=== PATIENT | female | born 1970 | race African-American/Black ===

== ENCOUNTER 2016-10-07 04:32 | Emergency (ER) | payer OTHER ==
[2016-10-07 04:45] VITALS: BP 118/83; PULSE 61; TEMP 98; BMI 23.9
--- NOTE | 2016-10-07 04:47 | PDOC ---
History of Present Illness - General Chief Complaint: Pain, Acute Stated Complaint: HEADACHE Time Seen by Provider: 10/07/16 04:44 History Source: Patient Exam Limitations: No Limitations - History of Present Illness Initial Comments: 10/07/16 04:45 This is a 46 her old female who has a history of migraine headaches and comes in complaining of a migraine headache. 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 Patient is requesting no medication here but does need a note to go home. Patient denies any fever, chills, neck stiffness any nausea or any other complaints. PAST MEDICAL HISTORY: no significant history PAST SURGICAL HISTORY: no significant history FAMILY HISTORY: no pertinant history SOCIAL HISTORY: Pt lives with family and is employed. MEDICATIONS: reviewed ALLERGIES: As per nursing notes Review of Systems General: No fevers or chills, no weakness, no weight loss HEENT: No change in vision. No sore throat,. No ear pain CardioVascular: No chest pain or shortness of breath Respiratory:No cough, or wheezing. Gastrointestinal: no nausea, vomitting, diarrhea or constipation, No rectal bleeding Genitourinary: No dysuria, hematuria, or frequency Musculoskeletal: No joint or muscle pain or swelling Neurologic: + Migraine headache, vertigo, dizziness or loss of consciousness Psychiatric: nor depression Skin: No rashes or easy bruising Endocrine: no increased thirst or abnormal weight change Allergic: no skin or latex allergy All other systems reviewed and normal GENERAL: The patient is awake, alert, and fully oriented, in no acute distress. HEAD: Normal with no signs of trauma. EYES: Pupils equal, round and reactive to light, extraocular movements intact, sclera anicteric, conjunctiva clear. EXTREMITIES: Normal range of motion, no edema. NEUROLOGICAL: Normal speech, normal gait. PSYCH: Normal mood, normal affect. SKIN: Warm, Dry, normal turgor, no rashes or lesions noted. Past History - Past Medical History Allergies/Adverse Reactions: Allergies Allergy/AdvReac Type Severity Reaction Status Date / Time Penicillins Allergy Verified 10/07/16 04:33 Home Medications: Ambulatory Orders NK [No Known Home Medication] 10/07/16 Other medical history: DENIES - Immunization History Immunization Up to Date: Yes - Psycho/Social/Smoking Cessation Hx Anxiety: No Suicidal Ideation: No Smoking History: Current some day smoker Have you smoked in the past 12 months: Yes Number of Cigarettes Smoked Daily: 2 Information on smoking cessation initiated: Yes 'Breaking Loose' booklet given: 10/07/16 Hx Alcohol Use: Yes Drug/Substance Use Hx: No Substance Use Type: None *Physical Exam - Vital Signs Last Vital Signs Temp Pulse Resp BP Pulse Ox 98 F 61 16 118/83 100 10/07/16 04:38 10/07/16 04:38 10/07/16 04:38 10/07/16 04:38 10/07/16 04:38 *DC/Admit/Observation/Transfer Diagnosis at time of Disposition: Migraine headache Qualifiers: Migraine type: unspecified Status migrainosus presence: without status migrainosus Intractability: not intractable Qualified Code(s): G43.909 - Migraine, unspecified, not intractable, without status migrainosus - Discharge Dispostion Disposition: HOME Condition at time of disposition: Stable Admit: No - Post Discharge Activity Work/School Note: Back to Work
== END 2016-10-07 04:51 | disposition home or self-care (01) ==
LOC: FER 04:32
DX: G43.909 Migraine, unspecified, not intractable, without status migrainosus (principal); F17.210 Nicotine dependence, cigarettes, uncomplicated
CPT/HCPCS: 99281-25

== ENCOUNTER 2017-05-18 07:19 | Emergency (ER) | payer OTHER ==
[2017-05-18 07:29] VITALS: BP 130/90; PULSE 72; TEMP 98.4; BMI 23.3
[2017-05-18] MEDS ORDERED: IBUPROFEN 600 MG TABLET (FP) PO ONE ×2 (07:35→07:40)
[2017-05-18] MEDS ORDERED: CYCLOBENZAPRINE HCL 10 MG TABLET (FP) ONE (07:35)
[2017-05-18] MEDS ORDERED: CYCLOBENZAPRINE HCL 10 MG TABLET (FP) PO ONE (07:39)
--- NOTE | 2017-05-18 07:42 | PDOC ---
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.) Exam Limitations: No Limitations - History of Present Illness Timing/Duration: 24 hours, getting worse Severity: moderate Modifying Factors: improves with: rest Associated Symptoms: reports: denies symptoms Aspirin Received prior to arrival: Yes: no aspirin today Past History - Travel Traveled outside of the country in the last 30 days: No Close contact w/someone who was outside of country & ill: No - Past Medical History Allergies/Adverse Reactions: Allergies Allergy/AdvReac Type Severity Reaction Status Date / Time Penicillins Allergy Verified 05/18/17 07:21 Home Medications: Ambulatory Orders Ibuprofen [Motrin -] 400 mg PO TID #21 tablet 05/18/17 Methocarbamol [Robaxin -] 500 mg PO BID #14 tablet 05/18/17 Other medical history: DENIES - Surgical History Other Surgical History: Tubal Ligation 05/18/17 07:48 - Immunization History Immunization Up to Date: Yes - Suicide/Smoking/Psychosocial Hx Smoking History: Former smoker Have you smoked in the past 12 months: Yes Number of Cigarettes Smoked Daily: 2 Information on smoking cessation initiated: Yes 'Breaking Loose' booklet given: 05/18/17 Hx Alcohol Use: No Drug/Substance Use Hx: No Substance Use Type: None Review of Systems - Review of Systems Able to Perform ROS?: Yes Is the patient limited Pakistani proficient: Yes Constitutional: Yes: Weakness HEENTM: No: Symptoms Reported, See HPI, Eye Pain, Blurred Vision, Tearing, Recent change in vision, Double Vision, Cataracts, Ear Pain, Ocular Prothesis, Ear Discharge, Nose Pain, Nose Congestion, Tinnitus, Nose Bleeding, Hearing Loss , Throat Pain, Throat Swelling, Mouth Pain, Dental Problems, Difficulty Swallowing, Mouth Swelling, Other Respiratory: No: Symptoms reported, See HPI, Cough, Orthopnea, Shortness of Breath, SOB with Exertion, SOB at Rest, Stridor, Wheezing, Productive cough, Hemoptysis, Other Cardiac (ROS): No: Symptoms Reported, See HPI, Chest Pain, Edema, Irregular Heart Rate, Lightheadedness, Palpitations, Syncope, Chest Tightness, Other ABD/GI: No: Symptoms Reported, See HPI, Abdominal Distended, Abd. Pain w/ defecation, Blood Streaked Bowels, Constipated, Diarrhea, Difficulty Swallowing , Nausea, Poor Appetite, Poor Fluid Intake, Rectal Bleeding, Vomiting, Indigestion, Abdominal cramping, Tarry Stools, Other Musculoskeletal: Yes: See HPI, Back Pain Neurological: Yes: See HPI Psychiatric: No: Anxiety, Depression, Frequent Crying, Stressors, Sleep Pattern Change, Emotional Problems, Mood Swings, Change in Appetite, Other All Other Systems: Reviewed and Negative *Physical Exam - Vital Signs Last Vital Signs Temp Pulse Resp BP Pulse Ox 98.4 F 72 16 130/90 98 05/18/17 07:23 05/18/17 07:23 05/18/17 07:23 05/18/17 07:23 05/18/17 07:23 - Physical Exam General Appearance: Yes: Nourished HEENT: positive: KIRSTEN Neck: positive: Supple Respiratory/Chest: positive: Lungs Clear Cardiovascular: positive: S1, S2 Gastrointestinal/Abdominal: positive: Soft. 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 NML intact, Fully Oriented, Alert, Normal Mood/ Affect Deep Tendon Reflexes: Ankle (L): 4+, Ankle (R): 4+, Knee (L): 4+, Knee (R): 4+, Bicep (L): 4+, Bicep (R): 4+, Tricep (L): 4+, Tricep (R): 4+ Medical Decision Making - Medical Decision Making After full evaluation of the patient, impression: lower back strain medications given in ER 05/18/17 11:08 *DC/Admit/Observation/Transfer Diagnosis at time of Disposition: Back pain Qualifiers: Back pain location: low back pain Chronicity: acute Back pain laterality: right Sciatica presence: without sciatica Qualified Code(s): M54.5 - Low back pain - Discharge Dispostion Disposition: HOME Condition at time of disposition: Stable Admit: No - Prescriptions Prescriptions: Ibuprofen [Motrin -] 400 mg PO TID #21 tablet Methocarbamol [Robaxin -] 500 mg PO BID #14 tablet - Patient Instructions Printed Discharge Instructions: DI for Back Strain or Sprain, Smoking Cessation Additional Instructions: Follow up with your doctor at [facility] if symptoms persist - Post Discharge Activity Forms/Work/School Notes: Back to Work
== END 2017-05-18 08:01 | disposition home or self-care (01) ==
LOC: FER 07:19
DX: M54.5 Low back pain (principal); Z87.891 Personal history of nicotine dependence
CPT/HCPCS: 99281-25

== ENCOUNTER 2017-08-11 07:11 | Emergency (ER) | payer OTHER ==
[2017-08-11 07:18] VITALS: BP 122/90; PULSE 90; TEMP 99.7; BMI 23.5
--- NOTE | 2017-08-11 07:36 | PDOC ---
History of Present Illness - General Chief Complaint: Cold Symptoms Stated Complaint: BODY ACHES Time Seen by Provider: 08/11/17 07:14 - History of Present Illness Initial Comments: 08/11/17 07:48 Chief complaint: Nasal congestion, productive cough, body aches History of present illness: Symptoms since last night. Subjective fever. Cough productive of yellowish and greenish sputum. Generalized body aches, malaise, fatigue. Had a flu shot. Review of systems: No chest pain, shortness of breath, abdominal pain, nausea, vomiting, diarrhea, visual or focal neurologic symptoms, unsteadiness of gait. No urinary tract symptoms, vaginal bleeding or discharge Past medical history: Chronic musculoskeletal back pain, otherwise healthy. Social/family history reviewed and noncontributory Physical exam: Alert oriented well-developed well-nourished mild distress from respiratory symptoms and myalgias Afebrile, vital signs normal HEENT: PERRLA, conjunctivae clear, nasal congestion without discharge, ears clear, throat clear. Neck supple without bruit mass or nodes Lungs clear with full breath sounds throughout bilaterally. No wheezes rales or rhonchi. No dyspnea or tachypnea CV regular without murmur rub or gallop no tachycardia Abdomen benign Neurological intact Skin clear, no rash, adequate turgor and wet mucous membranes Extremities no CCE Impression: Flu/viral syndrome. Viral bronchitis Plan: Flu swab, Motrin and Robitussin, symptomatic treatment and consider Tamiflu a flu swab was positive. Past History - Past Medical History Allergies/Adverse Reactions: Allergies Allergy/AdvReac Type Severity Reaction Status Date / Time Penicillins Allergy Verified 08/11/17 07:12 Home Medications: Ambulatory Orders Ibuprofen [Motrin -] 600 mg PO TID PRN #20 tablet 08/11/17 Promethazine/Phenyleph/Codeine [Promethazine Vc-Codeine Syrup] 1 - 2 tsp PO TID PRN #120 ml MDD 8 08/11/17 COPD: No Other medical history: DENIES - Immunization History Immunization Up to Date: Yes - Suicide/Smoking/Psychosocial Hx Smoking History: Current some day smoker Have you smoked in the past 12 months: Yes Number of Cigarettes Smoked Daily: 2 Information on smoking cessation initiated: Yes 'Breaking Loose' booklet given: 08/11/17 Hx Alcohol Use: No Drug/Substance Use Hx: No Substance Use Type: None *Physical Exam - Vital Signs Last Vital Signs Temp Pulse Resp BP Pulse Ox 99.7 F H 90 17 122/90 96 08/11/17 07:11 08/11/17 07:11 08/11/17 07:11 08/11/17 07:11 08/11/17 07:11 Medical Decision Making - Medical Decision Making 08/11/17 09:18 Flu swab is negative Rest, symptomatic treatment, and follow-up if no improvement. Adequately ambulatory in no significant distress upon discharge. *DC/Admit/Observation/Transfer Diagnosis at time of Disposition: Viral bronchitis - Discharge Dispostion Disposition: HOME Condition at time of disposition: Stable Admit: No - Prescriptions Prescriptions: Ibuprofen [Motrin -] 600 mg PO TID PRN #20 tablet PRN Reason: fever, body aches Promethazine/Phenyleph/Codeine [Promethazine Vc-Codeine Syrup] 1 - 2 tsp PO TID PRN #120 ml MDD 8 PRN Reason: Cough - Referrals - Patient Instructions Printed Discharge Instructions: DI for Viral Upper Respiratory Infection -- Adult - Post Discharge Activity Forms/Work/School Notes: Back to Work
[2017-08-11] MEDS ORDERED: guaiFENesin/D-METHORPHAN HB 10 ML UNIT-DOSE CUPS PO ONE (07:47)
[2017-08-11] MEDS ORDERED: IBUPROFEN 600 MG TABLET (FP) PO ONE ×2 (07:47→07:56)
[2017-08-11] MEDS ORDERED: guaiFENesin/D-METHORPHAN HB 10 ML UNIT-DOSE CUPS ONE (07:57)
== END 2017-08-11 09:35 | disposition home or self-care (01) ==
LOC: FER 07:11
DX: J20.8 Acute bronchitis due to other specified organisms (principal); F17.210 Nicotine dependence, cigarettes, uncomplicated
CPT/HCPCS: 87804; 99281-25

== ENCOUNTER 2017-10-04 05:09 | Emergency (ER) | payer OTHER ==
[2017-10-04 05:15] VITALS: BP 120/86; PULSE 112; TEMP 98.4; BMI 23.1
[2017-10-04] MEDS ORDERED: SODIUM CHLORIDE 0.9% 500 ML INFUS.BAG IV ONE (05:17)
[2017-10-04] MEDS ORDERED: ACETAMINOPHEN 1000 MG/100 ML VIAL (NON FORMULARY) IVPB ONE (05:17)
--- NOTE | 2017-10-04 05:21 | PDOC ---
History of Present Illness - General Chief Complaint: Pain, Acute Stated Complaint: COUGH,FEVER CHILLS BODY ACHES ongoing for a day Time Seen by Provider: 10/04/17 05:16 History Source: Patient Exam Limitations: No Limitations - History of Present Illness Timing/Duration: 24 hours Severity: severe Associated Symptoms: reports: fever/chills, loss of appetite, malaise, other ( body aches) Past History - Past Medical History Allergies/Adverse Reactions: Allergies Allergy/AdvReac Type Severity Reaction Status Date / Time Penicillins Allergy Verified 10/04/17 05:10 Home Medications: Ambulatory Orders NK [No Known Home Medication] 10/04/17 COPD: No Other medical history: SCIATICA - Immunization History Immunization Up to Date: Yes - Suicide/Smoking/Psychosocial Hx Smoking History: Never smoked Have you smoked in the past 12 months: No Number of Cigarettes Smoked Daily: 2 Information on smoking cessation initiated: No 'Breaking Loose' booklet given: 08/11/17 Hx Alcohol Use: No Drug/Substance Use Hx: No Substance Use Type: None Review of Systems - Review of Systems Constitutional: Yes: Fever, Loss of Appetite, Malaise, Weakness. No: Symptoms Reported, See HPI, Chills, Diaphoresis, Night Sweats, Weight Stable, Unintentional Wgt. Loss, Unexplained wgt Loss, Other HEENTM: No: Symptoms Reported, See HPI, Eye Pain, Blurred Vision, Tearing, Recent change in vision, Double Vision, Cataracts, Ear Pain, Ocular Prothesis, Ear Discharge, Nose Pain, Nose Congestion, Tinnitus, Nose Bleeding, Hearing Loss , Throat Pain, Throat Swelling, Mouth Pain, Dental Problems, Difficulty Swallowing, Mouth Swelling, Other Respiratory: No: Symptoms reported, See HPI, Cough, Orthopnea, Shortness of Breath, SOB with Exertion, SOB at Rest, Stridor, Wheezing, Productive cough, Hemoptysis, Other Cardiac (ROS): Yes: Palpitations. No: Symptoms Reported, See HPI, Chest Pain, Edema, Irregular Heart Rate, Lightheadedness, Syncope, Chest Tightness, Other ABD/GI: No: Symptoms Reported, See HPI, Abdominal Distended, Abd. Pain w/ defecation, Blood Streaked Bowels, Constipated, Diarrhea, Difficulty Swallowing , Nausea, Poor Appetite, Poor Fluid Intake, Rectal Bleeding, Vomiting, Indigestion, Abdominal cramping, Tarry Stools, Other : No: Symptoms Reported, See HPI, Burning, Dysuria, Discharge, Frequency, Flank Pain, Hematuria, Incontinence, Pain, Urgency, Testicular Mass, Testicular Swelling, Lesions, Testicular Pain, Other Musculoskeletal: Yes: Joint Pain, Muscle Pain. No: Symptoms Reported, See HPI, Back Pain, Gout, Joint Swelling, Muscle Weakness, Neck Pain, Joint Stiffness, Other Integumentary: No: Symptoms Reported, See HPI, Bruising, Change in Color, Change in Hair/Nails, Dryness, Erythema, Flushing, Lesions, Lumps, Pallor, Pruritus, Rash, Sweating, Other Neurological: No: Symptoms reported, See HPI, Headache, Numbness, Paresthesia, Pre-Existing Deficit, Seizure, Tingling, Tremors, Weakness, Unsteady Gait, Ataxia, Dizziness, Other *Physical Exam - Vital Signs Last Vital Signs Temp Pulse Resp BP Pulse Ox 98.4 F 112 H 16 120/86 98 10/04/17 05:10 10/04/17 05:10 10/04/17 05:10 10/04/17 05:10 10/04/17 05:10 - Physical Exam General Appearance: Yes: Nourished, Appropriately Dressed, Mild Distress HEENT: positive: EOMI, KIRSTEN, Normal ENT Inspection, Normal Voice, TMs Normal, Pharynx Normal Neck: positive: Trachea midline, Supple Respiratory/Chest: positive: Chest Tender, Lungs Clear, Normal Breath Sounds. 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 10/04/17 06:42 Pt's WBC count is normal. 10/04/17 06:51 Labs pending; pt will be signed out to the day ER doc. *DC/Admit/Observation/Transfer - Discharge Dispostion Condition at time of disposition: Stable - Referrals - Patient Instructions - Post Discharge Activity
[2017-10-04] MEDS ORDERED: ACETAMINOPHEN INJECTION 100 ML IVPB ONE (05:25)
[2017-10-04 06:02] LABS: BASO % 1.1 % (0-2.0); EOS % 0.7 % (0-4.5); HEMATOCRIT 38.5 % (32.4-45.2); HEMOGLOBIN 13.1 GM/dL (10.7-15.3); LYMPH % 21.1 % (8-40); MCH 32.6 pg (25.7-33.7); MCHC 33.9 g/dl (32.0-36.0); MEAN CELL VOLUME 96.2 fl (80-96); MEAN PLT VOLUME 8.9 fl (7.5-11.1); MONO % 14.4 % (3.8-10.2); NEUT % 62.7 % (42.8-82.8); PLATELET COUNT 230 K/MM3 (134-434); RBC 4.01 M/mm3 (3.60-5.2); RDW 14.1 % (11.6-15.6); WHITE BLOOD COUNT 7.2 K/mm3 (4.0-10.0)
[2017-10-04 07:12] LABS: ALBUMIN 4.1 g/dl (3.4-5.0); ALK PHOS 81 U/L (45-117); ANION GAP 8 (8-16); BILIRUBIN,TOTAL 0.4 mg/dL (0.2-1.0); BLOOD UREA NITROGEN 9 mg/dL (7-18); CALCIUM 8.6 mg/dL (8.5-10.1); CHLORIDE 104 mmol/L (98-107); CO2 23 mmol/L (21-32); CREATININE 0.7 mg/dL (0.55-1.02); GLUCOSE,RANDOM 88 mg/dL (74-106); POTASSIUM 4.1 mmol/L (3.5-5.1); SGOT/AST 30 U/L (15-37); SGPT/ALT 42 U/L (12-78); SODIUM 135 mmol/L (136-145); TOT PROT 7.5 g/dl (6.4-8.2)
[2017-10-04] MEDS ORDERED: KETOROLAC TROMETHAMINE 30 MG/1 ML VIAL IVPUSH ONE (07:36)
[2017-10-04] MEDS ORDERED: SODIUM CHLORIDE 1,000 ML IV STA (07:36)
[2017-10-04] MEDS ORDERED: KETOROLAC TROMETHAMINE 30 MG/1 ML VIAL ONE (07:38)
[2017-10-04] MEDS ORDERED: OSELTAMIVIR PHOSPHATE 75 MG CAPSULE PO ONE (08:11)
[2017-10-04] MEDS ORDERED: OSELTAMIVIR PHOSPHATE 75 MG CAPSULE ONE (08:13)
--- NOTE | 2017-10-04 08:17 | PDOC ---
*Physical Exam - Vital Signs Last Vital Signs Temp Pulse Resp BP Pulse Ox 98.4 F 112 H 16 120/86 98 10/04/17 05:10 10/04/17 05:10 10/04/17 05:10 10/04/17 05:10 10/04/17 05:10 ED Treatment Course - LABORATORY CBC & Chemistry Diagram: 10/04/17 05:20 10/04/17 05:20 - ADDITIONAL ORDERS Additional order review: Laboratory Results 10/04/17 10/04/17 05:20 05:20 Sodium 135 L Potassium 4.1 Chloride 104 Carbon Dioxide 23 Anion Gap 8 BUN 9 Creatinine 0.7 Creat Clearance w eGFR > 60 Random Glucose 88 Calcium 8.6 Total Bilirubin 0.4 AST 30 ALT 42 Alkaline Phosphatase 81 Total Protein 7.5 Albumin 4.1 TSH 0.41 10/04/17 05:20 RBC 4.01 MCV 96.2 H MCHC 33.9 RDW 14.1 MPV 8.9 Neutrophils % 62.7 Lymphocytes % 21.1 Monocytes % 14.4 H D Eosinophils % 0.7 Basophils % 1.1 - Medications Given in the ED: ED Medications Discontinued Medications Generic Name Dose Route Start Last Admin Trade Name Freq PRN Reason Stop Dose Admin Acetaminophen 1,000 mg 10/04/17 05:17 10/04/17 05:28 Ofirmev Injection - IVPB 10/04/17 05:18 1,000 mg ONCE ONE Administration Ketorolac Tromethamine 30 mg 10/04/17 07:36 10/04/17 07:45 Toradol Injection - IVPUSH 10/04/17 07:37 30 mg ONCE ONE Administration Sodium Chloride 1,000 ml 10/04/17 05:17 10/04/17 05:24 Normal Saline - IV 10/04/17 05:18 1,000 ml ONCE ONE Administration Medical Decision Making - Medical Decision Making 10/04/17 08:12 Sign-out received from outgoing Emergency Physician Dr. Hopson Pt interviewed and examined Ancillary studies reviewed Case discussed in detail with oncoming Emergency Physician including history, physical exam and ancillary studies. Pt known to me, works at [employer]. CBC, BMP 10/04/17 05:20 10/04/17 05:20 CMP Sodium 135 mmol/L (136-145) L 10/04/17 05:20 Potassium 4.1 mmol/L (3.5-5.1) 10/04/17 05:20 Chloride 104 mmol/L (98-107) 10/04/17 05:20 Carbon Dioxide 23 mmol/L (21-32) 10/04/17 05:20 Anion Gap 8 (8-16) 10/04/17 05:20 BUN 9 mg/dL (7-18) 10/04/17 05:20 Creatinine 0.7 mg/dL (0.55-1.02) 10/04/17 05:20 Creat Clearance w eGFR > 60 (>60) 10/04/17 05:20 Random Glucose 88 mg/dL (74-106) 10/04/17 05:20 Calcium 8.6 mg/dL (8.5-10.1) 10/04/17 05:20 Total Bilirubin 0.4 mg/dL (0.2-1.0) 10/04/17 05:20 AST 30 U/L (15-37) 10/04/17 05:20 ALT 42 U/L (12-78) 10/04/17 05:20 Alkaline Phosphatase 81 U/L (45-117) 10/04/17 05:20 Total Protein 7.5 g/dl (6.4-8.2) 10/04/17 05:20 Albumin 4.1 g/dl (3.4-5.0) 10/04/17 05:20 TSH 0.41 uIU/ml (0.358-3.74) 10/04/17 05:20 Labs reviewed. No acute findings. Discussed with patient in regards to getting a chest xray, but pt really would like to defer chest xray given the multiple chest xrays in the past. Will initiate tamiflu empirically (given there are no more antigens for testing) . I advised Ms. Abbasi that if she has worsening cough or worsening symptoms to return to the ED for a chest xray and further workup. She states that she will. I discussed the physical exam findings, ancillary test results and final diagnoses with the patient. I answered all of the patient's questions. The patient was satisfied with the care received and felt comfortable with the discharge plan and treatment plan. The patient will call their primary care physician within 24 hours to arrange follow-up and will return to the Emergency Department with any new, persistant or worsening symptoms. *DC/Admit/Observation/Transfer Diagnosis at time of Disposition: Influenza-like illness - Discharge Dispostion Disposition: HOME Condition at time of disposition: Stable Admit: No - Prescriptions Prescriptions: Acetaminophen [Tylenol] 650 mg PO Q4H PRN #20 tablet PRN Reason: Pain/Fever Naproxen 500 mg PO BID PRN #20 tablet PRN Reason: Pain/Fever Oseltamivir Phosphate [Tamiflu] 75 mg PO BID #10 capsule - Referrals - Patient Instructions Printed Discharge Instructions: DI for Influenza -- Adult Additional Instructions: You have flulike symptoms. Please take the Tamiflu as prescribed. For symptom control, take 500 mg of naproxen every 12 hours as needed or take 650 mg of Tylenol every 4 hours as needed. Drink plenty fluids and rest. It may take several days before your symptoms improved. Follow up with her doctor. If he develop worsening cough or severe chest pain or difficulty breathing, return to the ER for chest x-ray and further workup. - Post Discharge Activity Forms/Work/School Notes: Back to Work
== END 2017-10-04 08:22 | disposition home or self-care (01) ==
LOC: FER 05:09
PROC: 3E033NZ Introduction of Analgesics, Hypnotics, Sedatives into Peripheral Vein, Percutaneous Approach (ICD-10-PCS; principal; 2017-10-04)
PROC: 3E0333Z Introduction of Anti-inflammatory into Peripheral Vein, Percutaneous Approach (ICD-10-PCS; 2017-10-04)
PROC: 3E0337Z Introduction of Electrolytic and Water Balance Substance into Peripheral Vein, Percutaneous Approach (ICD-10-PCS; 2017-10-04)
DX: J11.1 Influenza due to unidentified influenza virus with other respiratory manifestations (principal)
CPT/HCPCS: 36415; 80053; 84443; 85025; 99281-25

== ENCOUNTER 2017-11-25 08:50 | Emergency (ER) | payer OTHER ==
--- NOTE | 2017-11-25 08:53 | PDOC ---
History of Present Illness - General Chief Complaint: Pain Stated Complaint: LOWER BACK PAIN DOWN RIGHT LEG Time Seen by Provider: 11/25/17 08:53 History Source: Patient - History of Present Illness Initial Comments: 11/25/17 09:30 PT presents to the ED complaining of acute exacerbation of buttock and leg pain secondary to sciatica that has been chronic since July of 2017. 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 She is seeing Dr. Moreno from orthopedics who is planing to do surgery. She is also followed by PT and pain management. Patient presented to the ED today because the motrin that she is prescribed for her pain is not working. Denies fevers or trauma. Denies bowel or bladder complaints. Denies weakness in her legs. She describes pain as severe pain that shoots from her buttocks to her legs. Pain is intermittent and sharp. Pain is exactly the same as her chronic pain. Past History - Travel Traveled outside of the country in the last 30 days: No Close contact w/someone who was outside of country & ill: No - Past Medical History Allergies/Adverse Reactions: Allergies Allergy/AdvReac Type Severity Reaction Status Date / Time Penicillins Allergy Mild Rash Verified 11/25/17 08:52 Home Medications: Ambulatory Orders NK [No Known Home Medication] 11/25/17 COPD: No - Immunization History Immunization Up to Date: Yes - Suicide/Smoking/Psychosocial Hx Smoking History: Never smoked Have you smoked in the past 12 months: No Number of Cigarettes Smoked Daily: 2 'Breaking Loose' booklet given: 08/11/17 Hx Alcohol Use: No Drug/Substance Use Hx: No Substance Use Type: None Review of Systems - Review of Systems Able to Perform ROS?: Yes Is the patient limited Liberian proficient: No Constitutional: No: Symptoms Reported, See HPI, Chills, Diaphoresis, Fever, Loss of Appetite, Malaise, Night Sweats, Weakness, Weight Stable, Unintentional Wgt. Loss, Unexplained wgt Loss, Other HEENTM: No: Symptoms Reported, See HPI, Eye Pain, Blurred Vision, Tearing, Recent change in vision, Double Vision, Cataracts, Ear Pain, Ocular Prothesis, Ear Discharge, Nose Pain, Nose Congestion, Tinnitus, Nose Bleeding, Hearing Loss , Throat Pain, Throat Swelling, Mouth Pain, Dental Problems, Difficulty Swallowing, Mouth Swelling, Other Respiratory: No: Symptoms reported, See HPI, Cough, Orthopnea, Shortness of Breath, SOB with Exertion, SOB at Rest, Stridor, Wheezing, Productive cough, Hemoptysis, Other Cardiac (ROS): No: Symptoms Reported, See HPI, Chest Pain, Edema, Irregular Heart Rate, Lightheadedness, Palpitations, Syncope, Chest Tightness, Other ABD/GI: No: Symptoms Reported, See HPI, Abdominal Distended, Abd. Pain w/ defecation, Blood Streaked Bowels, Constipated, Diarrhea, Difficulty Swallowing , Nausea, Poor Appetite, Poor Fluid Intake, Rectal Bleeding, Vomiting, Indigestion, Abdominal cramping, Tarry Stools, Other : No: Symptoms Reported, See HPI, Burning, Dysuria, Discharge, Frequency, Flank Pain, Hematuria, Incontinence, Pain, Urgency, Testicular Mass, Testicular Swelling, Lesions, Testicular Pain, Other Musculoskeletal: Yes: Back Pain. No: Symptoms Reported, See HPI, Gout, Joint Pain, Joint Swelling, Muscle Pain, Muscle Weakness, Neck Pain, Joint Stiffness, Other Integumentary: No: Symptoms Reported, See HPI, Bruising, Change in Color, Change in Hair/Nails, Dryness, Erythema, Flushing, Lesions, Lumps, Pallor, Pruritus, Rash, Sweating, Other Neurological: No: Symptoms reported, See HPI, Headache, Numbness, Paresthesia, Pre-Existing Deficit, Seizure, Tingling, Tremors, Weakness, Unsteady Gait, Ataxia, Dizziness, Other All Other Systems: Reviewed and Negative *Physical Exam - Physical Exam General Appearance: Yes: Nourished, Appropriately Dressed. No: Apparent Distress, Disheveled, Mild Distress, Moderate Distress, Severe Distress, Alcohol on Breath, Intoxicated, Cachetic, Obese, Thin, Other HEENT: positive: Normal ENT Inspection Neck: positive: Supple Respiratory/Chest: positive: Lungs Clear, Normal Breath Sounds. negative: Chest Tender, Respiratory Distress, Accessory Muscle Use, Labored Respiration, Rapid RR, Decreased Breath Sounds, Paradoxal Breathing, Crackles, Rales, Rhonchi , Stridor, Wheezing, Hyperresonant, Dullness, Plerual Rub, Other Cardiovascular: positive: Regular Rhythm, Regular Rate, S1, S2 Gastrointestinal/Abdominal: positive: Flat, Soft. negative: Tender, Organomegaly, Pulsatile Mass, Increased Bowel Sounds, Decreased BS, Protuberent , Distended, Guarding, Rebound, Tenderness, Hernia, Mass, Hepatomegaly, Spleenomegaly, Other Musculoskeletal: positive: Normal Inspection (no point tenderness over spine. No CVA tenderness. Full ROM of spine) Extremity: positive: Normal Inspection, Normal Range of Motion Integumentary: positive: Normal Color, Dry, Warm Neurologic: positive: homebirth midwife II-XII NML intact, Fully Oriented, Alert, Normal Mood/ Affect, Motor Strength 5/5 (5/5 plantar/dorsiflexion and great toe extention ) Medical Decision Making - Medical Decision Making 11/25/17 09:36 Pt presents to the ED complaining of acute exacerbation of her chronic sciatica pain. Patient has no new complaints--presented today because the motrin prescribed for her by pain management is not working and hasn't been working for some time. No signs that are concerning for cauda equina or cord compression. No signs concerning for fracture or malignancy. I have referred the patient back to pain management for ongoing pain control, but will treat her pain with percoset in the ED. Will discharge home. *DC/Admit/Observation/Transfer Diagnosis at time of Disposition: Back pain Qualifiers: Back pain location: low back pain Chronicity: chronic Back pain laterality: bilateral Sciatica presence: with sciatica Sciatica laterality: bilateral sciatica Qualified Code(s): M54.42 - Lumbago with sciatica, left side - Discharge Dispostion Condition at time of disposition: Stable Admit: No - Referrals - Patient Instructions Printed Discharge Instructions: DI for Low Back Pain Additional Instructions: return to the ED for new or changing symptoms, especially weakness in your legs , problems controlling your bowels or bladder, fever, other new or worsening symptoms. Call your orthopedist and pain management doctor for follow up. - Post Discharge Activity Forms/Work/School Notes: Back to Work
[2017-11-25 09:08] VITALS: BP 146/87; PULSE 79; TEMP 97.5; BMI 21.1
== END 2017-11-25 10:22 | disposition home or self-care (01) ==
LOC: FER 08:50
DX: M54.42 Lumbago with sciatica, left side (principal); Z72.0 Tobacco use
CPT/HCPCS: 99282-25

== ENCOUNTER 2018-10-10 07:40 | Emergency (ER) | payer OTHER ==
[2018-10-10] MEDS ORDERED: IBUPROFEN 600 MG TABLET (FP) PO ONE ×2 (07:52→07:58)
[2018-10-10 07:54] VITALS: BP 128/87; PULSE 69; TEMP 98.7; BMI 20.3
--- NOTE | 2018-10-10 08:58 | PDOC ---
History of Present Illness - General Chief Complaint: Pain, Acute Stated Complaint: INJURED LEFT ANKLE Time Seen by Provider: 10/10/18 07:46 - History of Present Illness Initial Comments: 10/10/18 08:54 48 years no past medical history twisted her foot today while at work. Rolled her ankle laterally. Able to ambulate but complaining pain to the lateral aspect of her foot No other injury sustained Pain is mild to moderate persistent constant worse with ambulating alleviated by rest. Past History - Past Medical History Allergies/Adverse Reactions: Allergies Allergy/AdvReac Type Severity Reaction Status Date / Time Penicillins Allergy Mild Rash Verified 10/10/18 07:41 Home Medications: Ambulatory Orders NK [No Known Home Medication] 11/25/17 COPD: No Other medical history: DENIES - Immunization History Immunization Up to Date: Yes - Suicide/Smoking/Psychosocial Hx Smoking History: Never smoked Have you smoked in the past 12 months: No Number of Cigarettes Smoked Daily: 2 Information on smoking cessation initiated: No 'Breaking Loose' booklet given: 08/11/17 Hx Alcohol Use: No Drug/Substance Use Hx: No Substance Use Type: None Review of Systems - Review of Systems Comments:: 10/10/18 08:55 ROS: A complete review of 10 out of 10 review of systems is taken and is negative apart from what is previously mentioned below and in the HPI. *Physical Exam - Vital Signs Last Vital Signs Temp Pulse Resp BP Pulse Ox 98.7 F 69 16 128/87 98 10/10/18 07:46 10/10/18 07:46 10/10/18 07:46 10/10/18 07:46 10/10/18 07:46 - Physical Exam Comments: 10/10/18 08:55 Vitals: Triage Vital signs reviewed General Appearance: no acute distress, well nourished well developed, Head: Atraumatic, Extremities: Full range of motion to all extremities, no cyanosis, clubbing, or edema, mild tenderness over the lateral malleolus and fifth metatarsal Skin: Warm and dry, no rashes or lesions, no rash, no petechiae Neuro: Strength intact to all extremities, Sensation intact to all extremities, gait normal Psych: normal mood, normal affect Moderate Sedation - Procedure Monitoring Vital Signs: Procedure Monitoring Vital Signs Temperature 98.7 F 10/10/18 07:46 Pulse Rate 69 10/10/18 07:46 Respiratory Rate 16 10/10/18 07:46 Blood Pressure 128/87 10/10/18 07:46 O2 Sat by Pulse Oximetry (%) 98 10/10/18 07:46 ED Treatment Course - RADIOLOGY Radiology Studies Ordered: Category Date Time Status ANKLE & FOOT-LEFT* [RAD] Stat Radiology 10/10/18 07:52 Completed - Medications Given in the ED: ED Medications Discontinued Medications Generic Name Dose Route Start Last Admin Trade Name Solange PRN Reason Stop Dose Admin Ibuprofen 600 mg 10/10/18 07:52 10/10/18 08:00 Motrin - PO 10/10/18 07:53 600 mg ONCE ONE Administration Medical Decision Making - Medical Decision Making 10/10/18 08:56 Mild ankle sprain no acute fracture dislocation on x-ray We'll recommend rest ice compression and elevation crutches will provide patient with 2 day work note and follow-up with orthopedist Findings, the need for follow-up and strict return instructions discussed with patient. *DC/Admit/Observation/Transfer Diagnosis at time of Disposition: Ankle sprain Qualifiers: Encounter type: initial encounter Involved ligament of ankle: unspecified ligament Laterality: left Qualified Code(s): S93.402A - Sprain of unspecified ligament of left ankle, initial encounter - Discharge Dispostion Disposition: HOME Condition at time of disposition: Stable Decision to Admit order: No - Referrals Referrals: Patricia Calle MD [Primary Care Provider] - Fernando Frazier MD [Staff Physician] - - Patient Instructions Printed Discharge Instructions: Ankle Sprain Additional Instructions: Use crutches at all times while ambulating for the next 1-2 days. Aircast at all times. Rest ice elevate take [id number] Motrin as directed on package as needed for pain. If no improvement after 1-2 days follow-up with Dr. Frazier orthopedist or occupational health if he require additional time off from work - Post Discharge Activity Forms/Work/School Notes: Back to Work
== END 2018-10-10 09:22 | disposition home or self-care (01) ==
LOC: FER 07:40
DX: S93.402A Sprain of unspecified ligament of left ankle, initial encounter (principal); X58.XXXA Exposure to other specified factors, initial encounter; Y93.89 Activity, other specified; Y92.89 Other specified places as the place of occurrence of the external cause; Z72.0 Tobacco use
CPT/HCPCS: 73610-TC-LT-FY; 73630-TC-LT; 99282-25

== ENCOUNTER 2019-03-15 06:19 | Emergency (ER) | payer OTHER ==
[2019-03-15 06:26] VITALS: BP 125/87; PULSE 70; TEMP 98.5; BMI 21.9
[2019-03-15] MEDS ORDERED: ALBUTEROL SO4 2.5/IPRATROPIUM 0.5 INH SOL 3 ML VIAL.NEB. NEB ONE ×2 (06:30→06:33)
--- NOTE | 2019-03-15 06:38 | PDOC ---
History of Present Illness - General Chief Complaint: Respiratory Stated Complaint: PRODUCTIVE COUGH,PAIN Time Seen by Provider: 03/15/19 06:33 History Source: Patient Exam Limitations: No Limitations - History of Present Illness Initial Comments: 03/15/19 06:34 This is a 49-year-old female who comes in complaining of cough productive of yellow and green phlegm with some wheezing. Patient has a cough that is intermittently productive of white phlegm. Patient denies history of asthma or reactive airway disease in the past. Patient denies any fevers chills nausea vomiting or diarrhea. 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 Allergies: as per nursing notes Past Medical History: none Social history: Lives with family. No smoking. No alcohol. No illicit drugs. Surgical history: None General: No fevers or chills, no weakness, no weight loss HEENT: No change in vision. No sore throat,. No ear pain CardioVascular: no chest discomfort. No shortness of breath Respiratory:No cough, or wheezing. Gastrointestinal: no nausea, vomiting, diarrhea or constipation, No rectal bleeding Genitourinary: No dysuria, hematuria, or frequency Musculoskeletal: No joint or muscle pain or swelling Neurologic: No headache, vertigo, dizziness or loss of consciousness Psychiatric: nor depression Skin: No rashes or easy bruising Endocrine: no increased thirst or abnormal weight change Allergic: no skin or latex allergy All other systems reviewed and normal GENERAL: The patient is awake, alert, and fully oriented, in no acute distress. HEAD: Normal with no signs of trauma. CHEST: There is some mild expiratory wheeze bilateral otherwise good air entry EYES: Pupils equal, round and reactive to light, extraocular movements intact, sclera anicteric, conjunctiva clear. EXTREMITIES:atraumatic, Normal range of motion, no edema. NEUROLOGICAL: Normal speech, normal gait. PSYCH: Normal mood, normal affect. SKIN: Warm, Dry, normal turgor, no rashes or lesions noted. Assessment and plan: This is a 49-year-old female with wheezing and an upper respiratory viral infection. Patient given DuoNeb and started on Z-Kurt. Patient feels better and discharged home. Patient will follow-up with her primary care doctor. Patient given today off from work Past History - Past Medical History Allergies/Adverse Reactions: Allergies Allergy/AdvReac Type Severity Reaction Status Date / Time Penicillins Allergy Mild Rash Verified 03/15/19 06:20 Home Medications: Ambulatory Orders Albuterol Sulfate Inhaler - [Ventolin Hfa Inhaler -] 1 - 2 inh PO Q4H #1 inhaler 03/15/19 Azithromycin 250 mg PO DAILY #4 tablet 03/15/19 COPD: No - Immunization History Immunization Up to Date: Yes - Suicide/Smoking/Psychosocial Hx Smoking History: Current some day smoker Have you smoked in the past 12 months: Yes Number of Cigarettes Smoked Daily: 2 Information on smoking cessation initiated: Yes 'Breaking Loose' booklet given: 08/11/17 Hx Alcohol Use: Yes (WEEK ENDS) Drug/Substance Use Hx: No Substance Use Type: None *Physical Exam - Vital Signs Last Vital Signs Temp Pulse Resp BP Pulse Ox 98.5 F 70 17 125/87 100 03/15/19 06:22 03/15/19 06:22 03/15/19 06:22 03/15/19 06:22 03/15/19 06:22 *DC/Admit/Observation/Transfer Diagnosis at time of Disposition: Acute asthmatic bronchitis - Discharge Dispostion Disposition: HOME Condition at time of disposition: Stable Decision to Admit order: No - Prescriptions Prescriptions: Albuterol Sulfate Inhaler - [Ventolin Hfa Inhaler -] 1 - 2 inh PO Q4H #1 inhaler Azithromycin 250 mg PO DAILY #4 tablet - Referrals - Patient Instructions Additional Instructions: Use your inhaler 2 puffs as often as every 4-6 hours as needed for wheezing and coughing. Take your next antibiotic dose of azithromycin tomorrow morning and take it once a day for 4 days. Return to the emergency department immediately with ANY new, persistent or worsening symptoms. Continue any medications as previously prescribed by your physician. You should follow up with your primary doctor as soon as possible regarding today's emergency department visit. . Please make sure your doctor reviews the results of your emergency evaluation. Thank you for coming to the Emergency Department today for your care. It was a pleasure to see you today. Please note that your evaluation is INCOMPLETE until you follow-up with your doctor. - Post Discharge Activity Forms/Work/School Notes: Back to Work
[2019-03-15] MEDS ORDERED: AZITHROMYCIN 500 MG TABLET PO ONE (06:49)
[2019-03-15] MEDS ORDERED: AZITHROMYCIN 250 MG TABLET ONE (06:51)
== END 2019-03-15 07:00 | disposition home or self-care (01) ==
LOC: FER 06:19
PROC: 3E0F7GC Introduction of Other Therapeutic Substance into Respiratory Tract, Via Natural or Artificial Opening (ICD-10-PCS; principal; 2019-03-15)
DX: J45.909 Unspecified asthma, uncomplicated (principal); F17.210 Nicotine dependence, cigarettes, uncomplicated
CPT/HCPCS: 99281-25

== ENCOUNTER 2019-05-15 06:38 | Emergency (ER) | payer OTHER ==
[2019-05-15] MEDS ORDERED: KETOROLAC TROMETHAMINE 60 MG/2 ML VIAL IM ONE (06:46)
--- NOTE | 2019-05-15 06:48 | PDOC ---
History of Present Illness - General Chief Complaint: Back Pain Stated Complaint: S/P FALL, BACK PAIN - History of Present Illness Occurred: reports: yesterday Severity: reports: moderate Pain Location: reports: neck, upper extremity Method of Injury: Yes: fall Modifying Factors: improves with: None Loss of Consciousness: no loss of consciousness Past History - Past Medical History Allergies/Adverse Reactions: Allergies Allergy/AdvReac Type Severity Reaction Status Date / Time Penicillins Allergy Mild Rash Verified 03/15/19 06:20 Home Medications: Ambulatory Orders Naproxen 500 mg PO BID PRN #12 tablet 05/15/19 COPD: No - Immunization History Immunization Up to Date: Yes - Psycho Social/Smoking Cessation Hx Smoking History: Current some day smoker Have you smoked in the past 12 months: Yes Number of Cigarettes Smoked Daily: 2 'Breaking Loose' booklet given: 03/15/19 Hx Alcohol Use: Yes (WEEK ENDS) Drug/Substance Use Hx: No Substance Use Type: None Review of Systems - Review of Systems All Other Systems: Reviewed and Negative *Physical Exam - Physical Exam General Appearance: Yes: Nourished, Appropriately Dressed Neck: negative: Tender Respiratory/Chest: positive: Lungs Clear Musculoskeletal: positive: Normal Inspection, Other (+ muscular tenderness). 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
[2019-05-15 06:50] VITALS: BP 123/90; PULSE 67; TEMP 98; BMI 21.9
[2019-05-15] MEDS ORDERED: KETOROLAC TROMETHAMINE 60 MG/2 ML VIAL ONE (07:02)
== END 2019-05-15 07:14 | disposition home or self-care (01) ==
LOC: FER 06:38
PROC: 3E0233Z Introduction of Anti-inflammatory into Muscle, Percutaneous Approach (ICD-10-PCS; principal; 2019-05-15)
DX: M79.18 Myalgia, other site (principal); Z88.0 Allergy status to penicillin; W18.39XA Other fall on same level, initial encounter; Y93.89 Activity, other specified; Y92.89 Other specified places as the place of occurrence of the external cause; F17.210 Nicotine dependence, cigarettes, uncomplicated
CPT/HCPCS: 99283-25

== ENCOUNTER 2020-03-13 10:26 | Emergency (ER) | payer OTHER ==
[2020-03-13 10:31] VITALS: BP 135/95; PULSE 80; TEMP 97.9; BMI 23.1
--- NOTE | 2020-03-13 10:53 | PDOC ---
History of Present Illness - General Chief Complaint: Palpitations Stated Complaint: my heart is racing Time Seen by Provider: 03/13/20 10:29 - History of Present Illness Initial Comments: 03/13/20 11:19 Chief complaint: Generalized weakness HPI: Complains of generalized weakness, lightheadedness, while at work this morning. Worked all night with a limited amount of sleep. Has had little to eat or drink in the last 12 hours Review of systems: Denies chest pain, shortness of breath, abdominal pain, nausea, vomiting, diarrhea, visual or focal neurologic symptoms, unsteadiness of gait. Remainder of systems reviewed and negative Past medical history: Denies active medical or surgical disease, takes no medication Social/family history: Denies drugs alcohol or tobacco. Stable home and family. Fully active without disability Physical exam: Alert and oriented well-developed well-nourished general fatigue but no acute distress, cooperative Afebrile, vital signs normal PERRLA, fundi benign, ENT clear. Mucous membranes somewhat dry. Neck supple without bruit mass or nodes Chest clear CV regular without murmur rub or gallop. 70/min. Abdomen benign Neurological C2 to 12 intact. Strength full and symmetric. No focal sensorimotor deficits. Gait stable and unimpaired Extremities no CCE Skin clear, no rash, adequate turgor Impression: Dehydration, possible heat related illness, stable Plan: Rest and oral rehydration. She is able to stay indoors with air conditioning. Return to ER if any further symptoms. Otherwise follow-up primary physician. Kept out of work the rest of today and tomorrow. Past History - Medical History Allergies/Adverse Reactions: Allergies Allergy/AdvReac Type Severity Reaction Status Date / Time Penicillins Allergy Mild Rash Verified 03/13/20 10:27 Home Medications: Ambulatory Orders NK [No Known Home Medication] 03/13/20 COPD: No - Reproductive History Is Patient Now?: No - Immunization History Immunization Up to Date: Yes - Psycho-Social/Smoking History Smoking History: Former smoker Have you smoked in the past 12 months: Yes Number of Cigarettes Smoked Daily: 2 Information on smoking cessation initiated: Yes 'Breaking Loose' booklet given: 03/15/19 - Substance Abuse Hx (Audit-C & DAST Scrn) How often the patient has a drink containing alcohol: Monthly or less Number of drinks the patient has on a typical day: 1 or 2 How often the patient has six or more drinks on one occasion: Never Score: In Men: 4 or > Positive; In Women: 3 or > Positive: 1 Screen Result (Pos requires Nsg. Audit-10AR): Negative In the last yr the pt used illegal drug/Rx for NonMed reason: No Score: Yes response is considered Positive: 0 Screen Result (Positive result requires Nsg. DAST-10): Negative *Physical Exam - Vital Signs Last Vital Signs Temp Pulse Resp BP Pulse Ox 97.9 F 80 17 135/95 100 03/13/20 10:27 03/13/20 10:27 03/13/20 10:27 03/13/20 10:27 03/13/20 10:27 Discharge - Discharge Information Problems reviewed: Yes Clinical Impression/Diagnosis: Dehydration Condition: Stable Disposition: HOME - Admission No - Follow up/Referral - Patient Discharge Instructions Patient Printed Discharge Instructions: DI for Dehydration -- Adult - Post Discharge Activity Work/Back to School Note: Back to Work
--- NOTE | 2020-03-15 12:45 | EKG ---
Test Reason : Blood Pressure : / mmHG Vent. Rate : 074 BPM Atrial Rate : 074 BPM P-R Int : 158 ms QRS Dur : 076 ms QT Int : 422 ms P-R-T Axes : 064 001 033 degrees QTc Int : 468 ms NORMAL SINUS RHYTHM NORMAL ECG WHEN COMPARED WITH ECG OF 13-SEP-2015 05:37, T WAVE INVERSION NO LONGER EVIDENT IN ANTERIOR LEADS Confirmed by TIM KOENIG MD ([id number]) on 03/15/2020 12:45:15 PM Referred By: REGGIE CONTE Confirmed By:TIM KOENIG MD
== END 2020-03-13 11:09 | disposition home or self-care (01) ==
LOC: FER 10:26
DX: E86.0 Dehydration (principal)
CPT/HCPCS: 93005; 99283-25

== ENCOUNTER 2020-06-20 06:26 | Emergency (ER) | payer OTHER ==
[2020-06-20 06:42] VITALS: BP 139/89; PULSE 58; TEMP 98.3; BMI 21.9
[2020-06-20] MEDS ORDERED: KETOROLAC TROMETHAMINE 30 MG/1 ML VIAL IM ONE (07:02)
[2020-06-20] MEDS ORDERED: KETOROLAC TROMETHAMINE 30 MG/1 ML VIAL ONE (07:03)
== END 2020-06-20 07:10 | disposition home or self-care (01) ==
LOC: SUPCPDRO 06:26 → FER 06:26
PROC: 3E0233Z Introduction of Anti-inflammatory into Muscle, Percutaneous Approach (ICD-10-PCS; principal; 2020-06-20)
DX: S93.602A Unspecified sprain of left foot, initial encounter (principal); S43.492A Other sprain of left shoulder joint, initial encounter
CPT/HCPCS: 73030-TC-LT-FY; 73630-TC-LT; 99284-25

== ENCOUNTER 2020-07-12 13:23 | Emergency (ER) | payer OTHER ==
[2020-07-12] MEDS ORDERED: ACETAMINOPHEN 500 MG TABLET (FP) ONE (13:28)
[2020-07-12 13:29] VITALS: BP 157/98; PULSE 56; TEMP 97.9; BMI 22.7
== END 2020-07-12 14:17 | disposition home or self-care (01) ==
LOC: FER 13:23
DX: S05.91XA Unspecified injury of right eye and orbit, initial encounter (principal)
CPT/HCPCS: 99284-25

== ENCOUNTER 2020-09-02 06:20 | Emergency (ER) | payer OTHER ==
[2020-09-02] MEDS ORDERED: TETRACAINE 0.5% OPHTH SOLN 2 ML BOTTLE ONE (06:29)
[2020-09-02] MEDS ORDERED: FLUORESCEIN NA 1 EA STRIP ONE (06:29)
[2020-09-02 06:32] VITALS: BP 138/85; PULSE 56; TEMP 97.6; BMI 22.7
[2020-09-02] MEDS ORDERED: valACYclovir HCL 500 MG TABLET (FP) ONE (06:37)
== END 2020-09-02 06:44 | disposition home or self-care (01) ==
LOC: FER 06:20
DX: B02.9 Zoster without complications (principal)
CPT/HCPCS: 99284-25

== ENCOUNTER 2020-12-02 08:40 | Emergency (ER) | payer OTHER ==
[2020-12-02] MEDS ORDERED: ACETAMINOPHEN 500 MG TABLET (FP) PO ONE (08:59)
[2020-12-02] MEDS ORDERED: ACETAMINOPHEN 500 MG TABLET (FP) ONE (09:02)
[2020-12-02 10:02] VITALS: BP 147/90; PULSE 61; TEMP 98; BMI 22.7
== END 2020-12-02 10:12 | disposition home or self-care (01) ==
LOC: FER 08:40
PROC: 0HQ0XZZ Repair Scalp Skin, External Approach (ICD-10-PCS; principal; 2020-12-02)
DX: S01.01XA Laceration without foreign body of scalp, initial encounter (principal)
CPT/HCPCS: 99284-25

== ENCOUNTER 2020-12-23 06:17 | Day surgery (SDC) | payer OTHER ==
[2020-12-18 10:18] VITALS: BMI 22.8
[2020-12-23] MEDS ORDERED: LIDOCAINE HCL 2% (20ML MULTI-DOSE VIAL) ONE (07:01)
[2020-12-23] MEDS ORDERED: MIDAZOLAM HCL 2 MG/2 ML SINGLE DOSE VIAL ONE (07:21)
[2020-12-23] MEDS ORDERED: PROPOFOL 20 ML ONE ×2 (07:21→08:14)
[2020-12-23] MEDS ORDERED: CLINDAMYCIN PHOSPHATE 600 MG/4 ML VIAL ONE (07:22)
[2020-12-23] MEDS ORDERED: LIDOCAINE HCL/PF 2% SDV 5ML VIAL ONE (07:22)
[2020-12-23] MEDS ORDERED: KETOROLAC TROMETHAMINE 30 MG/1 ML VIAL ONE (07:39)
[2020-12-23] MEDS ORDERED: BUPIVACAINE HCL/PF 0.5% (5MG/ML) 10 ML VIAL IJ ONE (08:27)
[2020-12-23 09:12] VITALS: TEMP 97.8
[2020-12-23 09:54] VITALS: BP 141/56; PULSE 56
== END 2020-12-23 10:05 | disposition home or self-care (01) ==
LOC: FASU 06:17
PROVIDERS: ATTEND Podiatrist
PROC: 0QSP04Z Reposition Left Metatarsal with Internal Fixation Device, Open Approach (ICD-10-PCS; principal; 2020-12-23 07:47)
DX: M20.12 Hallux valgus (acquired), left foot (principal)
CPT/HCPCS: 73630-TC-LT; 88304-TC; 88311-TC

== ENCOUNTER → 2021-07-21 | Day surgery (SDC) | payer OTHER ==
[2021-07-21 11:13] VITALS: BMI 22.7
[2021-07-21 12:55] VITALS: BP 115/70; PULSE 62; TEMP 97.9
== END | disposition home or self-care (01) ==
LOC: FASU-ENDO 10:06
PROVIDERS: ATTEND Internal Medicine Gastroenterology
PROC: 0DBN8ZX Excision of Sigmoid Colon, Via Natural or Artificial Opening Endoscopic, Diagnostic (ICD-10-PCS; principal; 2021-07-21 12:16)
DX: Z12.11 Encounter for screening for malignant neoplasm of colon (principal); K63.89 Other specified diseases of intestine
CPT/HCPCS: 88305-TC

== ENCOUNTER 2022-04-25 12:15 | Emergency (ER) | payer OTHER ==
[2022-04-25 12:29] VITALS: BP 123/80; PULSE 88; RESP 16; TEMP 98.9; BMI 22.7
== END 2022-04-25 13:23 | disposition home or self-care (01) ==
LOC: FER 12:15
DX: S92.504A Nondisplaced unspecified fracture of right lesser toe(s), initial encounter for closed fracture (principal); W22.8XXA Striking against or struck by other objects, initial encounter
CPT/HCPCS: 73630-TC-RT-FY; 99283-25

== ENCOUNTER 2022-11-13 11:27 | Emergency (ER) | payer OTHER ==
[2022-11-13 11:41] VITALS: BP 146/89; PULSE 68; RESP 18; TEMP 97.9; BMI 23.0
[2022-11-13] MEDS ORDERED: IBUPROFEN 600 MG TABLET (FP) PO ONE ×2 (11:45→11:49)
== END 2022-11-13 12:40 | disposition home or self-care (01) ==
LOC: FER 11:27
DX: S93.601A Unspecified sprain of right foot, initial encounter (principal); W22.8XXA Striking against or struck by other objects, initial encounter
CPT/HCPCS: 73660-TC-FY; 99283-25

== ENCOUNTER 2023-01-18 10:23 | Emergency (ER) | payer OTHER ==
[2023-01-18] MEDS ORDERED: LIDOCAINE 5% TOPICAL PATCH TP ONE (10:30)
[2023-01-18] MEDS ORDERED: IBUPROFEN 400 MG TABLET (FP) PO ONE ×2 (10:30→10:37)
[2023-01-18 10:37] VITALS: BP 126/82; PULSE 64; RESP 16; TEMP 98.1; BMI 23.0
[2023-01-18] MEDS ORDERED: LIDOCAINE 5% TOPICAL PATCH ONE (10:37)
[2023-01-18] MEDS ORDERED: LIDOCAINE PATCH REMOVAL MC SCH (22:00)
== END 2023-01-18 10:46 | disposition home or self-care (01) ==
LOC: FER 10:23
DX: M54.41 Lumbago with sciatica, right side (principal); G89.29 Other chronic pain
CPT/HCPCS: 99283-25

== ENCOUNTER 2023-03-05 11:23 | Emergency (ER) | payer OTHER ==
[2023-03-05 11:34] VITALS: BP 117/78; PULSE 56; RESP 18; TEMP 98.3; BMI 24.3
[2023-03-05] MEDS ORDERED: IBUPROFEN 600 MG TABLET (FP) PO ONE ×2 (11:51→11:55)
[2023-03-05] MEDS ORDERED: LIDOCAINE 5% TOPICAL PATCH TP ONE (11:51)
[2023-03-05] MEDS ORDERED: LIDOCAINE 5% TOPICAL PATCH ONE (11:56)
[2023-03-05 12:30] LABS: EPITHELIAL CELLS FEW /hpf
[2023-03-05 12:31] LABS: URINE MUCUS FEW
[2023-03-05] MEDS ORDERED: cefTRIAXone SODIUM 1 GM VIAL ONE (12:48)
[2023-03-05] MEDS ORDERED: LIDOCAINE PATCH REMOVAL MC SCH (22:00)
== END 2023-03-05 13:10 | disposition home or self-care (01) ==
LOC: FER 11:23
PROC: 3E023GC Introduction of Other Therapeutic Substance into Muscle, Percutaneous Approach (ICD-10-PCS; principal; 2023-03-05)
DX: N39.0 Urinary tract infection, site not specified (principal)
CPT/HCPCS: 81003; 81015; 84703; 87086; 87186; 99284-25

== ENCOUNTER 2023-05-24 05:53 | Emergency (ER) | payer OTHER ==
[2023-05-24 06:01] VITALS: BP 148/98; PULSE 64; RESP 19; TEMP 98.7; BMI 23.5
[2023-05-24] MEDS ORDERED: IBUPROFEN 600 MG TABLET (FP) PO ONE ×2 (06:10→06:37)
== END 2023-05-24 07:08 | disposition home or self-care (01) ==
LOC: FER 05:53
DX: M54.2 Cervicalgia (principal); S16.1XXA Strain of muscle, fascia and tendon at neck level, initial encounter; V49.40XA Driver injured in collision with unspecified motor vehicles in traffic accident, initial encounter; Y93.I9 Activity, other involving external motion
CPT/HCPCS: 72050-TC-FY; 99283-25

== ENCOUNTER 2023-08-29 11:51 | Emergency (ER) | payer OTHER ==
[2023-08-29 11:59] VITALS: BP 141/95; PULSE 100; RESP 18; TEMP 98; BMI 24.3
== END 2023-08-29 13:11 | disposition home or self-care (01) ==
LOC: FER 11:51
DX: S83.91XA Sprain of unspecified site of right knee, initial encounter (principal); W00.0XXA Fall on same level due to ice and snow, initial encounter; Y92.9 Unspecified place or not applicable
CPT/HCPCS: 73562-TC-RT-FY; 99283-25